=== PATIENT | male | born 1945 | race Caucasian/White ===

== ENCOUNTER 2017-02-16 03:48 | Observation (INO) | payer MEDICARE, OTHER ==
--- NOTE | ~2017-02-16 | HP ---
History And Physical [place] [address] [facility] [place]. [address] NAME: CYNTHIA SANDHU : 41 STATUS : ADM Nicole PAT#: [id number] AGE: 71 ADM/REG DATE : 02/16/17 MR#: [id number] REPORT SERV DATE: 02/16/17 DICTATED BY: MAC PALMA DATE: 02/16/17 REPORT STATUS : Draft TRANSCRIBED BY: MODL DATE: 02/16/17 DATE OF ADMISSION: 02/16/2017 CHIEF COMPLAINT: A 71-year-old male presenting with orthostatic like symptoms, dizziness, and a syncopal episode. HISTORY OF PRESENT ILLNESS: The patient's history was obtained through careful interview with the patient, coupled with review of [facility]. The patient has had intermittent dizziness for over a month now, but on the morning of 02/15/2017, he went out to work in his shop and noticed particular lightheadedness illness, he had to stop working and go back inside, spent the day resting. At 4:00 p.m. was feeling well again and he worked in his shop once again from 4:00 p.m. to 7:00 p.m., but after this became extremely dizzy once again. About 10 to 10:30 p.m. in the evening the patient was feeling extreme lightheadedness, developed nausea, vomiting, slight chest discomfort, a tightness that radiated to shoulder blade 4/10 severity, and also diffuse abdominal cramping about 8/10 severity. It was in the midst of this, that he became increasingly lightheaded and passed out. In total over about a period of 30 minutes he had three separate syncopal episodes, each time passing out and unresponsive for about 2 or 3 minutes. No closed head injury. No diarrhea. REVIEW OF SYSTEMS: Otherwise, a 14-point review of systems was obtained and was negative. PAST MEDICAL HISTORY: 1. Coronary artery disease, status post stent placement in 2006 and 2010, followed by Dr. Womack. 2. Obstructive sleep apnea, on CPAP. 3. Anxiety with posttraumatic stress disorder. 4. Hypertension, but also has been documented hypotension in the past. 5. Prostate cancer in 2013 with surgery only. 6. Elevated cholesterol. 7. Anemia, followed by Dr. Vijaykurmar Rodriguez, with negative upper endoscopy in 2016. 8. Cecal ulcer in 2007. 9. Left ankle fracture. PAST SURGICAL HISTORY: 1. Prostate cancer, surgery in 2014. 2. Cholecystectomy. ALLERGIES: NO KNOWN DRUG ALLERGIES. History And Physical [address] [address] NAME: CYNTHIA SANDHU : 41 STATUS : ADM Nicole PAT#: [id number] AGE: 71 ADM/REG DATE : 02/16/17 MR#: [id number] REPORT SERV DATE: 02/16/17 DICTATED BY: MAC PALMA DATE: 02/16/17 REPORT STATUS : Draft TRANSCRIBED BY: SUDHIR DATE: 02/16/17 SOCIAL HISTORY: Quit smoking 40 years ago. No alcohol abuse. He is . Lives in [place], [place]. 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 FAMILY HISTORY: Mother at 92 years of age of complications of hip fracture. She had dementia. Father at 89 years of age of kidney failure. CURRENT MEDICATIONS: Current medications are uncertain at this time. We have asked Pharmacy to compile a list and investigate. PHYSICAL EXAMINATION: VITAL SIGNS: Temperature 97.6, pulse 69, blood pressure 119/54, respiratory rate 18, and O2 saturation 94% on room air. GENERAL: A pleasant, cooperative male. No evidence of acute distress at this time. HEENT: Pupils equal, round, and reactive to light. No conjunctival pallor. No scleral icterus. Nares are patent. Oropharynx is clear of obstruction. Very dry mucous membranes. NECK: Trachea midline. No thyromegaly. LYMPH: No cervical lymphadenopathy. No supraclavicular lymphadenopathy. RESPIRATORY: Clear to auscultation at bases. No wheezes, rales, or rhonchi. Normal respiratory effort. CARDIOVASCULAR: Regular rate and rhythm. No murmurs, rubs, or gallops. No extremity edema is appreciated. ABDOMEN: Soft, nontender, and nondistended. Normal bowel sounds auscultated throughout. No hepatosplenomegaly. DERMATOLOGICAL: Warm and dry extremities. No pallor. No cyanosis. PSYCHIATRIC: Normal affect. Good mood. Alert and oriented x3. LABORATORY DATA: White blood cell count 10, hemoglobin 12, hematocrit 35, and platelets 184. Sodium 139, potassium 3.0, chloride 102, bicarb 26, BUN 34, creatinine 0.95 from baseline creatinine of 1.0, and glucose 117. INR 1.1. AST 16, ALT 27, alkaline phosphatase 148, total bilirubin 1.3. Troponin negative. Urinalysis negative for infection, but shows 35 hyaline casts. CURRENT STUDIES: 1. EKG by my own evaluation shows sinus with first-degree AV block. 2. CT angiogram of the chest reviewed from 02/10/2017, shows no acute intrathoracic process. 3. A venous Doppler ultrasound of lower extremity on 02/10/2017 was reviewed and was negative. History And Physical [address] [place]. [address] NAME: CYNTHIA SANDHU : 41 STATUS : ADM Nicole PAT#: [id number] AGE: 71 ADM/REG DATE : 02/16/17 MR#: [id number] REPORT SERV DATE: 02/16/17 DICTATED BY: MAC PALMA DATE: 02/16/17 REPORT STATUS : Draft TRANSCRIBED BY: SUDHIR DATE: 02/16/17 ASSESSMENT AND PLAN: 1. Orthostasis with syncope. Place on IV fluids. Check cortisol. Check thyroid. Consider either Florinef or midodrine ? 2. Acute kidney injury. Place on IV fluids. 3. Obstructive sleep apnea. Place on CPAP. KPL/MODL Mac Palma M.D. / [id number] CC: Man Pulido Jr, MD Ted Scoggins, M.D. William Warren, M.D.
--- NOTE | ~2017-02-16 | DS ---
Discharge Summary [facility] [address] [place]. [address] NAME: CYNTHIA SANDHU : 41 STATUS : DIS Nicole PAT#: [id number] AGE: 71 ADM/REG DATE : 02/16/17 MR#: [id number] REPORT SERV DATE: 02/18/17 DICTATED BY: ДМИТРИЙ RUIZ DATE: 02/17/17 REPORT STATUS : Draft TRANSCRIBED BY: MODL DATE: 02/17/17 ADMISSION DATE: 02/16/2017 DISCHARGE DATE: 02/17/2017 DISCHARGE DIAGNOSES: Include: 1. Syncope and orthostasis that is improved. 2. Acute kidney injury resolved, most recent creatinine 1.16. 3. Edema left lower extremity. 4. Obstructive sleep apnea with history of CPAP use. DISCHARGE MEDICATIONS: Are as follows: Aspirin 81 mg daily, Lipitor 40 mg at bedtime, Paxil 40 mg daily, valsartan hydrochlorothiazide 80/12.5 mg one tablet daily, and he has been instructed to not resume his prazosin at discharge. HISTORY OF PRESENT ILLNESS: This is a very pleasant 71-year-old white male, who presented with orthostatic symptoms, dizziness, and syncopal episode. Please see the initial H and P of Dr. Shawn Louis. This patient was admitted to the Hospitalist Service for further evaluation and treatment. He had also had a prior admission for the exact same symptomatology as well in November and also relates that he had an admission to another hospital in [place] for the exact same presentation as well. Procedures and imaging during this admission include a venous ultrasound of the left lower extremity that is negative for DVT. CONTINUATION OF HOSPITAL COURSE: I began seeing the patient on the morning of 02/16/2017 where with IV hydration, his creatinine had begun to improve falling from 1.95 to 1.45. I obtained the accurate home medication list and in review, he was on a rather large dose of prazosin 6 mg that he had been taking for several years. This is a high risk medication for syncope, hypotension, and orthostasis. I discussed this further with him as surgically he has no prostate, and he revealed that this medication has been prescribed for "nightmares" so I discussed with him stopping this medication altogether as it is likely culprit for his symptomatology. I obtained the above-described venous ultrasound for left lower extremity edema but it is negative for DVTs. His kidney function continued to resolve with creatinine falling to 1.16. He has had no more episodes of syncope as orthostatics were within normal limits, and he was felt safe for discharge home on 02/17/2017 with instructions to follow up with his primary care physician Dr. Tono Suarez in two to three weeks, and questions were answered at bedside fully, and patient is in agreement with this plan going forward. ESTELLE/SUDHIR Дмитрий Ruiz NP / [id number] Discharge Summary [address] [address] NAME: CYNTHIA SANDHU : 41 STATUS : DIS Nicole PAT#: [id number] AGE: 71 ADM/REG DATE : 02/16/17 MR#: [id number] REPORT SERV DATE: 02/18/17 DICTATED BY: ДМИТРИЙ RUIZ DATE: 02/17/17 REPORT STATUS : Draft TRANSCRIBED BY: SUDHIR DATE: 02/17/17 CC: Jenn Herndon M.D.
[2017-02-16 03:45] LABS: BASOPHILS 0.1 %; BASOPHILS ABSOLUTE 0.01 10/3/uL (0.0-0.16); EOSINOPHILS 0.4 %; EOSINOPHILS ABSOLUTE 0.04 10/3/uL (0.0-0.53); ER CBC TAT 0 Hrs 00 Mins; HEMATOCRIT 35.3 % (40.0-51.0); HEMOGLOBIN 12.2 g/dL (13.6-17.8); IMMATURE GRANULOCYTES 0.3 %; IMMATURE GRANULOCYTES ABSOLUTE 0.03 10/3/uL (0.0-0.11); LYMPHOCYTES 15.8 %; LYMPHOCYTES ABSOLUTE 1.59 10/3/uL (0.67-4.30); MEAN CORPUS HGB CONC 34.6 g/dL (32.0-36.0); MEAN CORPUSCULAR VOLUME 89.8 fL (80-100); MEAN PLATELET VOLUME 9.1 fL (9.2-13.0); MONOCYTES 6.8 %; MONOCYTES ABSOLUTE 0.69 10/3/uL (0.21-1.20); NEUTROPHILS 76.6 %; NEUTROPHILS ABSOLUTE 7.72 10/3/uL (2.02-8.40); RBC DISTRIBUTION WIDTH 13.2 % (12.0-16.0); RED CELL COUNT 3.93 10/6/uL (4.7-6.1); WHITE BLOOD CELLS 10.1 10/3/uL (4.5-10.5)
[2017-02-16 03:46] LABS: MANUAL DIFF NO %; PLATELET COUNT 189 10/3/uL (150-400)
[2017-02-16 03:48] LABS: ASCORBIC ACID (UR NOT ORDER) 20 (NEG); BILIRUBIN, URINE NEGATIVE (NEG); ER URINALYSIS TAT 0 Hrs 00 Mins; KETONE, URINE NEGATIVE (NEG); LEUKOCYTE ESTERASE(NOT OR NEG (NEG); NITRITE (URINE) NEG (NEG); WBC (NOT ORDERED) (RFLEX) 1 (0-5)
[~2017-02-16 03:48] MED LIST: AIRBORNE PO; ASAB PO; BUSPAR5 PO; DIL2TAB PO; DIOV80 PO; DIOVAN HCT PO; DITRO5 PO; FERROUS SULF325 M1 PO; FLONASE NAS; IMDUR OR; IMDUR30 PO; K-TABS10 MEQ PO; KLONO1 PO; KLOR-CON M2020 MEQ PO; LIPITOR40 PO; MINIPRESS 1 MG C1 MG PO; MINIPRESS2 MG PO; MONO20 PO; NEXIUM40 PO; NORCO1 TA1 PO; NORV5 PO; NTG150 SL; PAX10 PO; PAXIL30 MG PO; PRILOSEC40 MG PO; PROTONIX PO; PROZAC PO; REG PO; WELL100 PO; Z300 PO
[2017-02-16 03:52] LABS: INTERNATIONAL NORMAL RATI 1.1 UNITS (-); PARTIAL THROMBO TIME 27.5 SEC (22.5-37.2); PROTIME (NOT ORD) 14.1 SEC (12.0-14.5)
[2017-02-16 04:00] LABS: ALBUMIN 3.9 G/DL (3.5-5.0); ALKALINE PHOSPHATASE 148 U/L (45-117); CHEST PAIN PROFILE TAT 0 Hrs 09 Mins; CHLORIDE, SERUM 102 MMOL/L (96-112); CO2 (CARBON DIOXIDE) 26 MMOL/L (24-34); DIRECT BILIRUBIN 0.2 MG/DL (0.0-0.4); GLUCOSE, SERUM 117 MG/DL (60-99); INDIRECT BILIRUBIN(NOT ORDER) 1.1 MG/DL (0.1-0.9); SGOT(AST) 16 U/L (5-40); SGPT(ALT) 27 U/L (5-65); SODIUM, SERUM 139 MMOL/L (135-148); TOTAL PROTEIN 7.1 G/DL (6.0-8.5); TROPONIN I <0.02 NG/ML (<0.05)
[2017-02-16 04:01] LABS: BUN (BLOOD UREA NITROGEN) 34 MG/DL (6-23); CREATININE 1.95 MG/DL (0.70-1.30); GFR AFRICAN AMERICAN 38 ML/MIN (>=60); GFR NON AFRICAN AMERICAN 33 ML/MIN (>=60); TOTAL BILIRUBIN 1.3 MG/DL (0-1.2)
[2017-02-16] MEDS ORDERED: FAMILY TO BRING (05:25)
[2017-02-16 12:24] LABS: BASOPHILS 0.2 %; BASOPHILS ABSOLUTE 0.02 10/3/uL (0.0-0.16); EOSINOPHILS 0.9 %; EOSINOPHILS ABSOLUTE 0.09 10/3/uL (0.0-0.53); HEMATOCRIT 34.9 % (40.0-51.0); HEMOGLOBIN 11.8 g/dL (13.6-17.8); IMMATURE GRANULOCYTES 0.2 %; IMMATURE GRANULOCYTES ABSOLUTE 0.02 10/3/uL (0.0-0.11); LYMPHOCYTES 13.6 %; LYMPHOCYTES ABSOLUTE 1.34 10/3/uL (0.67-4.30); MEAN CORPUS HGB CONC 33.8 g/dL (32.0-36.0); MEAN CORPUSCULAR HEMOGLOB 30.5 pg (26.0-34.0); MEAN CORPUSCULAR VOLUME 90.2 fL (80-100); MEAN PLATELET VOLUME 9.2 fL (9.2-13.0); MONOCYTES 5.8 %; MONOCYTES ABSOLUTE 0.57 10/3/uL (0.21-1.20); NEUTROPHILS 79.3 %; NEUTROPHILS ABSOLUTE 7.81 10/3/uL (2.02-8.40); PLATELET COUNT 189 10/3/uL (150-400); RBC DISTRIBUTION WIDTH 13.5 % (12.0-16.0); RED CELL COUNT 3.87 10/6/uL (4.7-6.1); WHITE BLOOD CELLS 9.9 10/3/uL (4.5-10.5)
[2017-02-16 12:29] LABS: MANUAL DIFF NO %
[2017-02-16 12:35] LABS: INTERNATIONAL NORMAL RATI 1.1 UNITS (-); PARTIAL THROMBO TIME 29.5 SEC (22.5-37.2)
[2017-02-16 12:46] LABS: A/G RATIO 1.1 (0.7-1.9); ALBUMIN 3.4 G/DL (3.5-5.0); ALKALINE PHOSPHATASE 128 U/L (45-117); BUN (BLOOD UREA NITROGEN) 30 MG/DL (6-23); CALCIUM, SERUM 8.5 MG/DL (8.5-10.4); CHLORIDE, SERUM 103 MMOL/L (96-112); CO2 (CARBON DIOXIDE) 29 MMOL/L (24-34); CREATININE 1.45 MG/DL (0.70-1.30); FREE T4 0.95 NG/DL (0.76-1.46); GFR AFRICAN AMERICAN 55 ML/MIN (>=60); GFR NON AFRICAN AMERICAN 47 ML/MIN (>=60); GLUCOSE, SERUM 129 MG/DL (60-99); SGOT(AST) 12 U/L (5-40); SGPT(ALT) 22 U/L (5-65); SODIUM, SERUM 137 MMOL/L (135-148); TOTAL BILIRUBIN 1.1 MG/DL (0-1.2); TOTAL PROTEIN 6.4 G/DL (6.0-8.5); TROPONIN I <0.02 NG/ML (<0.05); ULTRASENSITIVE TSH 0.638 MCIU/ML (0.358-3.740)
[2017-02-16] MEDS ORDERED: DIOVAN HCT PO (15:00)
[2017-02-16] MEDS ORDERED: PAXIL40 MG PO (15:01)
[2017-02-16] MEDS ORDERED: LIPITOR40 PO (15:02)
[2017-02-16] MEDS ORDERED: ASAB PO (15:02)
[2017-02-16] MEDS ORDERED: MINIPRESS 2 MG C2 MG PO (15:04)
[2017-02-17 04:41] LABS: CALCIUM, SERUM 8.7 MG/DL (8.5-10.4); CHLORIDE, SERUM 107 MMOL/L (96-112); CO2 (CARBON DIOXIDE) 30 MMOL/L (24-34); CREATININE 1.16 MG/DL (0.70-1.30); GFR AFRICAN AMERICAN 72 ML/MIN (>=60); GFR NON AFRICAN AMERICAN 62 ML/MIN (>=60); POTASSIUM, SERUM 3.9 MMOL/L (3.5-5.3)
[2017-02-17 04:43] LABS: BUN (BLOOD UREA NITROGEN) 22 MG/DL (6-23); GLUCOSE, SERUM 97 MG/DL (60-99); SODIUM, SERUM 144 MMOL/L (135-148)
== END 2017-02-17 13:51 | disposition home or self-care (01) ==
LOC: ER 03:48 → CDU1 05:50
PROVIDERS: Hospitalist; Nurse Practitioner Family; Specialist
DX: R55 Syncope and collapse (principal); I25.10 Atherosclerotic heart disease of native coronary artery without angina pectoris; N17.9 Acute kidney failure, unspecified; G47.33 Obstructive sleep apnea (adult) (pediatric); F41.9 Anxiety disorder, unspecified; F43.10 Post-traumatic stress disorder, unspecified; E78.00 Pure hypercholesterolemia, unspecified; D64.9 Anemia, unspecified; Z90.49 Acquired absence of other specified parts of digestive tract; Z87.891 Personal history of nicotine dependence; Z79.82 Long term (current) use of aspirin; Z79.899 Other long term (current) drug therapy; Z98.42 Cataract extraction status, left eye; Z85.46 Personal history of malignant neoplasm of prostate; Z98.890 Other specified postprocedural states
CPT/HCPCS: 71010; 80048; 80053; 80076; 81001; 82248; 82533; 83605; 83735; 83880; 84132; 84439; 84443; 84484; 85025; 85610; 85730; 93005; 93971; 96360; 96372; 96374; 96376; 99285; A9270-GY; G0378